=== PATIENT | female | born 1990 | race Caucasian/White ===

== ENCOUNTER 2016-10-06 09:42 | Emergency (ER) ==
[2016-10-06 11:08] LABS: BASO% 0.6 % (0.0-0.8); EOS% 2.1 % (0.0-10.0); HEMATOCRIT 35.2 % (37.0-47.0); HEMOGLOBIN 10.5 g/dL (12.0-16.0); LYMPH# 0.95 X1000 (1.2-3.4); LYMPH% 19.5 % (20.5-51.1); MANUAL DIFF NEEDED? YES; MCH 21.8 PG (27-31); MCHC 29.8 g/dL (33-37); MCV 73.2 FL (81-99); MONO% 10.3 % (1.7-9.3); MPV 12.2 FL (7.4-10.4); NEUT% 67.5 % (42.2-75.2); PLT 237 X1000 (130-400); RBC 4.81 XMIL (4.2-5.4)
[2016-10-06 11:19] LABS: AGAP 8; ALBUMIN 4.6 g/dL (3.5-5.0); ALKALINE PHOSPHATASE 61 U/L (32-104); BUN 7 mg/dL (8-22); CALCIUM 9.6 mg/dL (8.8-10.2); CHLORIDE 102 mmol/L (98-107); COSMO 275; GOT 14 U/L (10-30); GPT 7 U/L (10-36); LIPASE 22 U/L (13-60); POTASSIUM 3.7 mmol/L (3.5-5.1); SODIUM 138 mmol/L (136-145); TCO2 28 mmol/L (25-35); TOTAL PROTEIN 7.7 g/dL (6.3-8.3)
[2016-10-06 11:28] LABS: LYMPHS 41 % (21-51); MONO 3 % (1-9)
[2016-10-06 11:54] LABS: URINE SOURCE CLEAN CATCH
[2016-10-06 11:57] LABS: BILIRUBIN URINE NEGATIVE (NEGATIVE); BLOOD URINE 3+ (NEGATIVE); CLARITY CLEAR (CLEAR); COLOR YELLOW; GLUCOSE URINE NEGATIVE (NEGATIVE); LEUKOCYTES URINE TRACE (NEGATIVE); NITRITE URINE NEGATIVE (NEGATIVE); PH URINE 6.5; PROTEIN URINE 1+(30 mg/dL) mg/dL (NEGATIVE); UROBILINOGEN URINE NORMAL
[2016-10-06 12:06] LABS: URINE WBC <10 /HPF (<10)
[2016-10-06 12:07] LABS: URINE CULTURE PL NEEDED? YES; URINE EPITHELIAL CELLS >10 /HPF (<10)
[2016-10-06] MEDS ORDERED: TORADOL IV ONE (12:13)
[2016-10-06] MEDS ORDERED: NS 1,000 ML IV ONE (12:13)
[2016-10-06] MEDS ORDERED: ZOFRAN IV ONE (12:13)
--- NOTE | 2016-10-06 13:26 | Diag Imaging Result Document ---
PROCEDURE NAME: RENAL STONE SEARCH - 10/06/2016 CT RENAL STONE SEARCH WITHOUT CONTRAST: A dose-reduction protocol was used. Compared with 09/25/2013. FINDINGS: There is no evidence of hydronephrosis or perinephric edema. There are a couple of small nonobstructing stones in the left kidney. There is a 3 mm calcification at the lateral left pelvis which likely represents a phlebolith. There is no definite ureteral stone identified. There is no evidence of bowel obstruction. There is a large amount of retained fecal debris in the left colon, particularly the rectosigmoid colon. This may relate to constipation and/or rectosigmoid fecal impaction. There is no free air. There are no calcified gallstones seen. IMPRESSION: 1. Small nonobstructing stones in left kidney. No definite ureteral stone identified. No hydronephrosis. 2. Evidence of constipation and/or rectosigmoid fecal impaction. [facility]
--- NOTE | 2016-10-06 13:39 | PROVIDER DOCUMENTATION ---
HPI-Abdominal Pain/GI Problem - General Chief Complaint: Abdominal Pain Stated Complaint: ABD PAIN Time Seen by Provider: 10/06/16 11:27 Source: patient Allergies/Adverse Reactions: Patient Allergies Allergy/AdvReac Type Severity Reaction Status Date / Time latex Allergy RASH Verified 10/06/16 10:12 - History of Present Illness-ABD Nature of Presenting Problems: This pt, who has a hx of IBS and anemia, presents today c complaints of abdominal pains for the past week. she denies any n/v/d. reports normal BM (for her). She denies any dysuria, hematuria. No fever, chills. No other issues or complaints. Abdominal Pain Onset Location: reports: generalized abdomen Pain Radiation: reports: flank Quality of Pain: reports: aching, cramping Severity in ED: reports: moderate Onset/Duration: reports: 1 week ago Timing: reports: still present Last BM: 24 hours ago Dark Stools Present?: reports: none noticed Rectal Bleeding: reports: none Rectal Pain: reports: none Emesis Description: reports: none Bruising or Bleeding Gums?: No Similar Symptoms Previously?: Yes Recently seen or treated by another doctor?: No Review of Systems - Adult - REVIEW OF SYSTEMS - ADULT Constitutional: reports: no symptoms reported. denies: chills, fever Eyes: reports: no symptoms reported. denies: discharge, dry eyes Ears, Nose, Mouth & Throat: reports: no symptoms reported. denies: ear discharge, ear pain Cardiovascular: reports: no symptoms reported. denies: chest pain, edema Respiratory: reports: no symptoms reported. denies: chronic cough, cough Gastrointestinal: reports: abdominal pain. denies: hematemesis, frequent heartburn, nausea Genitourinary: reports: flank pain. denies: dysuria, discharge Musculoskeletal: reports: back pain, muscle aches. denies: bone pain, frequent leg cramps, joint pain Integumentary: reports: no symptoms reported. denies: hives, hair loss Neurological: reports: no symptoms reported. denies: ataxia, dizziness/vertigo Psychiatric: reports: no symptoms reported. denies: anxiety, anti-depressant use Endocrine: reports: no symptoms reported Hematologic/Lymphatic: reports: no symptoms reported Allergic/Immunologic: reports: no symptoms reported All Other Systems: Reviewed and Negative Past History - Adult - PAST MEDICAL HISTORY-ADULT Review of Records: reports: Old Records Reviewed, Nursing Assessment Review, Medications Reviewed, Social history reviewed & non-contributory. Major Childhood Illnesses: reports: denies history Cardiovascular: reports: denies history Respiratory: reports: denies history Gastrointestinal: reports: IBS Obstetrical/Gynecological: reports: denies history Genitourinary: reports: denies history Musculoskeletal: reports: fibromyalgia, other (scoliosis) Neurological: reports: denies history Psychiatric: reports: denies history Endocrine/Immune: reports: anemia Other Conditions: reports: denies history, other (fibromyalgia) - PRIOR SURGERIES/PROCEDURES Surgical/Procedure History: reports: appendectomy, BTL, - IMMUNIZATION STATUS Childhood Immunizations: See Nurse Assessment Flu Vaccine: See Nurse Assessment - FAMILY HISTORY Family History: reviewed, not pertinent Physical Exam-General - PHYSICAL EXAM-ADULT Initial Vital Signs Reviewed: Yes - CONSTITUTIONAL General Appearance: appears well, alert, no apparent distress - EYES Eyes: PERRL/EOMI, pink conjunctivae - HEAD, EARS, NOSE, MOUTH & THROAT HENMT: normocephalic/atraumatic, moist mucous membranes, normal ENT inspection - NECK Neck: non-tender, full range of motion, normal inspection - RESPIRATORY Respiratory: chest non-tender, lungs clear, normal breath sounds - CARDIOVASCULAR Cardiovascular: normal peripheral pulses, regular rate, rhythm, no edema - GASTROINTESTINAL (ABDOMEN) Abdominal Exam: normal bowel sounds, soft, no organomegaly, no pulsatile mass, tenderness (generalized). negative: abdominal bruit, abnormal bowel sounds, distended, guarding, rigid, rebound, McBurney's point tenderness, Lara's sign - LYMPHATIC Lymphatic: no adenopathy - MUSCULOSKELETAL Back Exam: normal inspection, no CVA tenderness, no vertebral tenderness Extremity: normal range of motion, non-tender, normal gait - SKIN Integumentary: normal color, normal turgor, warm/dry - NEUROLOGIC Neurologic: grossly normal, no motor/sensory deficits - PSYCHIATRIC Psych/Mental Status: normal mood/affect, normal thought content, normal thought process, oriented x 3 Progress - PLAN OF CARE/RESULTS Progress/Plan/Lab Results: Laboratory Tests 10/06/16 10/06/16 10/06/16 10:40 10:40 11:26 WBC 4.86 RBC 4.81 Hgb 10.5 L Hct 35.2 L MCV 73.2 L MCH 21.8 L MCHC 29.8 L RDW Std Deviation 17.4 H Plt Count 237 MPV 12.2 H Immature Gran % (Auto) 0.0 Neut % (Auto) 67.5 Lymph % (Auto) 19.5 L Petroleum % (Auto) 10.3 H Eos % (Auto) 2.1 Baso % (Auto) 0.6 Immature Gran # (Auto) 0.00 Neut # (Auto) 3.28 Lymph # (Auto) 0.95 L Petroleum # (Auto) 0.50 Eos # (Auto) 0.10 Baso # (Auto) 0.03 Segmented Neutrophils 83 H Lymphocytes 41 Monocytes 3 Microcytosis 1+ Sodium 138 Potassium 3.7 Chloride 102 Carbon Dioxide 28 Anion Gap 8 BUN 7 L Creatinine 0.7 Estimated GFR/1.73 m2 > 60 BUN/Creatinine Ratio 10 Glucose 117 H Calculated Osmolality 275 Calcium 9.6 Total Bilirubin 0.20 AST 14 ALT 7 L Alkaline Phosphatase 61 Total Protein 7.7 Albumin 4.6 Globulin 3.0 Albumin/Globulin Ratio 1.0 Lipase 22 Urine Source Urine Color Urine Clarity Urine pH Ur Specific [place] Urine Protein Urine Ketones Urine Blood Urine Nitrite Urine Bilirubin Urine Urobilinogen Urine Microscopic RBC Urine WBC Urine Microscopic WBC Ur Epithelial Cells Urine Bacteria Urine Glucose Urine Test NEGATIVE 10/06/16 11:26 WBC RBC Hgb Hct MCV MCH MCHC RDW Std Deviation Plt Count MPV Immature Gran % (Auto) Neut % (Auto) Lymph % (Auto) Petroleum % (Auto) Eos % (Auto) Baso % (Auto) Immature Gran # (Auto) Neut # (Auto) Lymph # (Auto) Petroleum # (Auto) Eos # (Auto) Baso # (Auto) Segmented Neutrophils Lymphocytes Monocytes Microcytosis Sodium Potassium Chloride Carbon Dioxide Anion Gap BUN Creatinine Estimated GFR/1.73 m2 BUN/Creatinine Ratio Glucose Calculated Osmolality Calcium Total Bilirubin AST ALT Alkaline Phosphatase Total Protein Albumin Globulin Albumin/Globulin Ratio Lipase Urine Source CLEAN CATCH Urine Color YELLOW Urine Clarity CLEAR Urine pH 6.5 Ur Specific [place] 1.020 Urine Protein 1+(30 mg/dL) A Urine Ketones NEGATIVE Urine Blood 3+ A Urine Nitrite NEGATIVE Urine Bilirubin NEGATIVE Urine Urobilinogen NORMAL Urine Microscopic RBC 10-20 A Urine WBC TRACE A Urine Microscopic WBC <10 Ur Epithelial Cells >10 A Urine Bacteria 1+ Urine Glucose NEGATIVE Urine Test Orders Category Date Time Status Saline Loc NOW Care 10/06/16 10:21 Active NPO Diet 10/06/16 10:21 Active RENAL STONE SEARCH [CT] Stat Exams 10/06/16 12:13 Draft CBC WITH DIFF [HEME] Stat Lab 10/06/16 10:40 Completed COMPREHENSIVE METABOLIC PANEL [CHEM] Stat Lab 10/06/16 10:40 Completed LIPASE [CHEM] Stat Lab 10/06/16 10:40 Completed TEST-URINE [PREG] Stat Lab 10/06/16 11:[address] W/POSS RFLX CULT [URINALYSIS] Stat Lab 10/06/16 11:26 Completed URINE CULTURE [RM] Routine Lab 10/06/16 12:07 Ordered 0.9% Sodium Chloride Inj [Ns] 1,000 ml Med 10/06/16 12:13 Discontinued IV 999 mls/hr Ketorolac [Toradol] Med 10/06/16 12:13 Discontinued 15 mg IV NOW ONE Ondansetron [Zofran] Med 10/06/16 12:13 Discontinued 4 mg IV NOW ONE Vital Signs Temp Pulse Resp BP Pulse Ox 10/06/16 13:36 98.5 F 10/06/16 10:08 100.4 F H 95 H 18 141/108 100 latex Allergy (Verified 10/06/16 10:12) RASH Dietary Diet NPO Start ThuOct 06 102 Laboratory 10/06/16 10/06/16 10/06/16 11:26 11:26 10:40 WBC 4.86 RBC 4.81 Hgb 10.5 L Hct 35.2 L MCV 73.2 L MCH 21.8 L MCHC 29.8 L RDW Std Deviation 17.4 H Plt Count 237 MPV 12.2 H Immature Gran % (Auto) 0.0 Neut % (Auto) 67.5 Lymph % (Auto) 19.5 L Petroleum % (Auto) 10.3 H Eos % (Auto) 2.1 Baso % (Auto) 0.6 Immature Gran # (Auto) 0.00 Neut # (Auto) 3.28 Lymph # (Auto) 0.95 L Petroleum # (Auto) 0.50 Eos # (Auto) 0.10 Baso # (Auto) 0.03 Segmented Neutrophils 83 H Lymphocytes 41 Monocytes 3 Microcytosis 1+ Sodium Potassium Chloride Carbon Dioxide Anion Gap BUN Creatinine Estimated GFR/1.73 m2 BUN/Creatinine Ratio Glucose Calculated Osmolality Calcium Total Bilirubin AST ALT Alkaline Phosphatase Total Protein Albumin Globulin Albumin/Globulin Ratio Lipase Urine Source CLEAN CATCH Urine Color YELLOW Urine Clarity CLEAR Urine pH 6.5 Ur Specific [place] 1.020 Urine Protein 1+(30 mg/dL) A Urine Ketones NEGATIVE Urine Blood 3+ A Urine Nitrite NEGATIVE Urine Bilirubin NEGATIVE Urine Urobilinogen NORMAL Urine Microscopic RBC 10-20 A Urine WBC TRACE A Urine Microscopic WBC <10 Ur Epithelial Cells >10 A Urine Bacteria 1+ Urine Glucose NEGATIVE Urine Test NEGATIVE 10/06/16 10:40 WBC RBC Hgb Hct MCV MCH MCHC RDW Std Deviation Plt Count MPV Immature Gran % (Auto) Neut % (Auto) Lymph % (Auto) Petroleum % (Auto) Eos % (Auto) Baso % (Auto) Immature Gran # (Auto) Neut # (Auto) Lymph # (Auto) Petroleum # (Auto) Eos # (Auto) Baso # (Auto) Segmented Neutrophils Lymphocytes Monocytes Microcytosis Sodium 138 Potassium 3.7 Chloride 102 Carbon Dioxide 28 Anion Gap 8 BUN 7 L Creatinine 0.7 Estimated GFR/1.73 m2 > 60 BUN/Creatinine Ratio 10 Glucose 117 H Calculated Osmolality 275 Calcium 9.6 Total Bilirubin 0.20 AST 14 ALT 7 L Alkaline Phosphatase 61 Total Protein 7.7 Albumin 4.6 Globulin 3.0 Albumin/Globulin Ratio 1.0 Lipase 22 Urine Source Urine Color Urine Clarity Urine pH Ur Specific [place] Urine Protein Urine Ketones Urine Blood Urine Nitrite Urine Bilirubin Urine Urobilinogen Urine Microscopic RBC Urine WBC Urine Microscopic WBC Ur Epithelial Cells Urine Bacteria Urine Glucose Urine Test - CT/MRI 1 CT Study: Renal Stone CT Results: renal stones; severe constipation Departure - Departure Time of Disposition Order: 13:37 DIAGNOSIS: Acute UTI Constipation Qualifiers: Constipation type: unspecified constipation type Qualified Code(s): K59.00 - Constipation, unspecified Disposition: HOME 01 Certified Medical Emergency: Emergent Condition: Good Additional Instructions: Take medication as prescribed. Follow up with a GI physician. Return to the ER for any new or worsening symptoms. ED Follow Up Instructions: You have been treated by a care provider in the Emergency Department. These instructions are being provided to you so you can have an understanding of how to care for yourself upon discharge. Upon discharge from the Emergency Department, you are responsible for making arrangements for follow-up care by a physician of your choice. Take all prescribed medications as directed. Return to the Emergency Department immediately for any new or worsening symptoms. You may call the Physician Referral phone number at [phone] to obtain a list of Physicians who are taking new patients. Prescriptions: Glycerin [Adult Glycerin] 1 each RC TID #20 supp.rect Sulfamethoxazole/Trimethoprim [Bactrim Ds Tablet] 1 each PO BID #10 tablet Bisacodyl [Dulcolax] 10 mg OR QHS #20 supp Referrals: None,PCP [Primary Care Provider] - Fritz Yoon MD [STAFF PHYSICIAN] - Attestation - Physician/ Mid-level Attestation Patient care was provided by Mid-level provider ([employer]/PA):: Yes Mid-level provider:: Sai Lombardi Mid-level documentation review:: The Mid-level provider documentation, treatment plan and medical decision making was reviewed by the physician who agrees with all treatment and medical decision making by the MLP.
[2016-10-06 14:02] VITALS: BP 125/89
== END 2016-10-06 14:09 | disposition home or self-care (01) ==
LOC: P.ED 09:42
DX: N39.0 Urinary tract infection, site not specified (principal); K59.00 Constipation, unspecified; N20.0 Calculus of kidney; R10.84 Generalized abdominal pain; R10.9 Unspecified abdominal pain; M54.9 Dorsalgia, unspecified; M79.1 Myalgia; M79.7 Fibromyalgia; M41.9 Scoliosis, unspecified
CPT/HCPCS: 36415; 74176; 80053; 81001; 81025; 83690; 85025; 87088; 96361; 96374; 96375; J1885; J2405; J7030